=== PATIENT | male | born 1980 | race Two or more races ===

== ENCOUNTER 2016-08-15 22:00 | Emergency (ER) | payer SELFPAY ==
[2016-08-15 22:08] VITALS: BP 144/93; BMI 23.0
[2016-08-15] MEDS ORDERED: TORADOL 30 MG VIAL IVP STA (22:22)
[2016-08-15] MEDS ORDERED: NS 1000 ML 1,000 ML IV ONE (22:22)
[2016-08-15] MEDS ORDERED: NS 1000 ML 1,000 ML ONE (22:27)
[2016-08-15] MEDS ORDERED: TORADOL 30 MG VIAL ONE (22:27)
--- NOTE | 2016-08-15 22:27 | DR.GENAD ---
HPI - PCP Primary Care Physician: NFD - Complaint/Symptoms Chief Complaint Doctors Comments: Patient complains of severe right CVA pain and lower back pain for the past two hours onset at work. Patient states he feels he need to urinate but has not been able to urinate. He denies nausea, vomiting, fever, chills, rafa or hematuria. States he had similar pains about 5-6 years ago. He denies alcohol, drug or tobacco use. States he does not have a local doctor. He denies any recent trauma. Chief Complaint:: "He was working and his stomach started hurting all the way to his back. He is in excrutiating pain." - Nurses notes reviewed Nurses Notes Review: Yes - Source History Provided: Patient, Friend (intrepreter), Other - Mode of Arrival Mode of Arrival: Ambulatory - Timing Onset of Chief Complaint: 08/15/16 Came on: Suddenly - Duration Duration: Constant How lon Duration: Hours - Location Location: right CVA and lower back pain - Severity Severity: Severe - Modifying Factors Worsens:: movement Improves:: nothing PMH - PMH Past Medical History: No Past Surgical History: No - Family History History of Family Medical Conditions: Yes Family Medical History: Diabetes Mellitus - Social History Does patient currently use any type of tobacco product: No Have you used tobacco products in the last 12 months: No Type of Tobacco Use: None Does any household member use tobacco: No Alcohol Use: None Do you use any recreational Drugs:: No Lives With: Alone Lives Where: Home - infectious screening In the last 2 months have you had wt loss of >10#?: NO Have you had fever, night sweats or hemotysis?: No Have you traveled outside the country in the last 6 months?: Yes Details about travelin month ago Isolation: Standard ROS - Review of Systems Constitutional: No Symptoms Reported. negative: See HPI, Chills, Diaphoresis, Fever, Malaise, Weakness, Irritable, Fatigue, Loss of Appetite, Other Eyes: No Symptoms Reported. negative: See HPI, Eye Pain, Blurred Vision, Tearing, Discharge, Photophobia, Diplopia, Other ENTM: No Symptoms Reported. negative: See HPI, Ear Pain, Ear Discharge, Pulling on Ears, Hearing Loss, Nose Pain, Nose Discharge, Epistaxis, Nose Congestion, Mouth Pain, Mouth Swelling, Loose Teeth, Drooling, Throat Pain, Throat Swelling, Ear Foreign Body Respiratoy: No Symptoms Reported Cardiovascular: No Symptoms Reported. negative: See HPI, Chest Pain, Edema, Palpitations, Syncope, Cyanosis, Skin Mottling, Other Gastrointestinal/Abdominal: No Symptoms Reported, Abdominal Pain (right CVA pain ) Genitourinary: No Symptoms Reported, Dysuria, Pain. negative: See HPI, Discharge, Frequency, Hematuria, Bleeding, Other Neurological: No Symptoms Reported Musculoskeletal: No Symptoms Reported, Right, Back Integumentary: No Symptoms Reported Hematologic/Lymphatic: No Symptoms Reported Endocrine: No Symptoms Reported Psychiatric: No Symptoms Reported PE - Vital Signs Vitals: Temperature 98.2 F Pulse Rate 106 Respiratory Rate 18 Blood Pressure 144/93 O2 Sat by Pulse Oximetry 100 - General Limitations: No Limitations General Appearance: Alert, In Distress (moderate distress) - Head Head Exam: Normal Inspection, Atraumatic, Normocephalic - Eyes Eye exam: Normal Appearance, PERRL, EOMI. negative: Scleral Icterus, Conjunctival Injection, Nystagmus, Miosis, Mydrasis, Periorbital Swelling, Periorbital Tenderness, Other - ENT ENT Exam: Normal Exam, Normal Oropharynx, Normal External Ear Exam, Mucous Membranes Moist, TM's Normal Bilaterally External Ear Exam: Normal External Inspection TM/Canal Exam: Bilateral Normal Nose Exam: Normal Nose Exam Mouth Exam: Normal Inspection Throat Exam: Normal Inspection - Neck Neck Exam: Normal Inspection, Full ROM, Trachea Midline. negative: Tenderness, Meningismus, Lymphadenopathy, Thyromegaly, Other - Chest Chest Inspection: Normal Inspection, Symmetric Chest Wall Rise. negative: Tenderness, Rash, Abscess, Other - Respiratory Respiratory Exam: Normal Lung Sounds Bilat Respiratory Exam: Bilateral Clear to Auscultation - Cardiovascular Cardiovascular Exam: Regular Rate, Normal Rhythm, Normal Heart Sounds - Abdominal Exam Abdominal Exam: Normal Inspection, Normal Bowel Sounds, Soft Abdominal Tenderness: RUQ, RLQ, Severe - Extremities Extremities Exam: Normal Inspection, Full ROM, Normal Capillary Refill. negative: Tenderness, Edema, Joint Swelling, Calf Tenderness, Other - Back Back Exam: Normal Inspection, Full ROM, Tenderness (right CVA and right hypogastric tenderness), (R) CVA Tenderness. negative: (L) CVA Tenderness, Muscle Spasm, Paraspinal Tenderness, Vertebral Tenderness, Rashes, (R) Sciatic Notch Tenderness, (L) Sciatic Notch Tendern, (R) Straight Leg Raise, (L) Straight Leg Raise, Other - Neurologic Neurological Exam: Alert, Oriented X3, CN II-XII Intact, Normal Gait, Reflexes Normal - Psychiatric Psychiatric Exam: Normal Affect, Normal Mood - Skin Skin Exam: Warm, Dry, Intact, Normal Color ROR - Labs Reviewed Laboratory Results Reviewed?: Yes (All labs and x-ray results reviewed and discussed with patient) Result Diagrams: 08/15/16 22:31 08/15/16 22:31 Laboratory: WBC 15.7 X10^3/uL (3.6-10.0) H 08/15/16 22:31 RBC 5.63 X10^6/uL (4.7-6.0) 08/15/16 22: Hgb 16.9 g/dL (13.5-18.0) 08/15/16 22:31 Hct 49.4 % (42.0-54.0) 08/15/16 22: MCV 87.7 fL (80.0-100.0) 08/15/16 22:31 MCH 30.0 pg (27.0-34.0) 08/15/16 22: MCHC 34.3 g/dL (33.0-35.0) 08/15/16 22: RDW 13.5 % (11.6-16.5) 08/15/16 22:31 Plt Count 293 X10^3/uL (150.0-450.0) 08/15/16 22:31 MPV 7.9 fL (7.4-11.0) 08/15/16 22:31 Neut % 81.1 % (42.0-75.0) H 08/15/16 22:31 Lymph % 13.9 % (21.0-51.0) L 08/15/16 22: Lamar % 3.7 % (0.0-13.0) 08/15/16 22:31 Eos % 0.9 % (0.9-2.9) 08/15/16 22:31 Baso % 0.4 % (0.2-1.0) 08/15/16 22:31 Neut # 12.7 x10^3/uL (2.2-4.8) H 08/15/16 22:31 Lymph # 2.2 X10^3/uL (1.3-2.9) 08/15/16 22:31 Lamar # 0.6 x10^3/uL (0.3-0.8) 08/15/16 22:31 Eos # 0.1 x10^3/uL (0.0-0.2) 08/15/16 22:31 Baso # 0.1 X10^3/uL (0.0-0.1) 08/15/16 22:31 Absolute Nucleated RBC 0.2 /100WBC 08/15/16 22:31 Sodium 146 mmol/L (136-145) H 08/15/16 22:31 Corrected Sodium 147 mmol/L (136-145) H 08/15/16 22:31 Potassium 3.5 mmol/L (3.5-5.1) 08/15/16 22:31 Chloride 107 mmol/L (98-107) 08/15/16 22:31 Carbon Dioxide 27.0 mmol/L (21-32) 08/15/16 22:31 BUN 12 mg/dL (7-18) 08/15/16 22:31 Creatinine 1.24 mg/dL (0.70-1.30) 08/15/16 22:31 Est GFR (MDRD) Af Amer > 60 (>60) 08/15/16 22:31 Est GFR (MDRD) Non-Af > 60 (>60) 08/15/16 22:31 Glucose 158 mg/dL (65-99) H 08/15/16 22:31 Calcium 9.7 mg/dL (8.5-10.1) 08/15/16 22:31 Corrected Calcium TNP 08/15/16 22:31 Total Bilirubin 0.40 mg/dL (0.2-1.0) 08/15/16 22:31 AST 22 Units/L (15-37) 08/15/16 22:31 ALT 38 Units/L (12-78) 08/15/16 22:31 Alkaline Phosphatase 124 Units/L (46-116) H 08/15/16 22:31 Total Protein 8.0 g/dL (6.4-8.2) 08/15/16 22:31 Albumin 4.2 g/dL (3.4-5.0) 08/15/16 22:31 Globulin 3.8 g/dL (2.5-4.5) 08/15/16 22:31 Albumin/Globulin Ratio 1.1 Ratio (1.1-2.1) 08/15/16 22:31 Amylase 115 Units/L (25-115) 08/15/16 22:31 Lipase 359 Units/L (73-393) 08/15/16 22:31 Specimen Type Clean catch urine 08/15/16 23:29 Urine Color Dark yellow (YELLOW) 08/15/16 23:29 Urine Appearance Cloudy (CLEAR) 08/15/16 23:29 Urine pH 6.5 (5.0 - 8.0) 08/15/16 23:29 Ur Specific [place] 1.020 (1.000-1.030) 08/15/16 23:29 Urine Protein 2+ (NEGATIVE) 08/15/16 23:29 Urine Glucose (UA) Negative (NEGATIVE) 08/15/16 23:29 Urine Ketones Negative (NEGATIVE) 08/15/16 23:29 Urine Occult Blood 5+ (NEGATIVE) 08/15/16 23:29 Urine Nitrite Negative (NEGATIVE) 08/15/16 23:29 Urine Bilirubin Negative (NEGATIVE) 08/15/16 23:29 Urine Urobilinogen Normal (NORMAL) 08/15/16 23:29 Ur Leukocyte Esterase 1+ (NEGATIVE) 08/15/16 23:29 Urine RBC Tntc /HPF (NEGATIVE) 08/15/16 23:29 Urine WBC 10-15 /HPF (NEGATIVE) 08/15/16 23:29 Ur Squamous Epith Cells Rare /HPF (NEGATIVE) 08/15/16 23:29 Urine Bacteria 1+ /HPF (NEGATIVE) 08/15/16 23:29 Ur Culture Indicated? Yes/culture set up 08/15/16 23:29 - XRAY XRAY Interpreted by: Radiologist (CT abdomend: 3mm stone in the distal right ureter causing mild right hydronephrosis and hydroureter) - Diagnosis Discharge Problem: Right distal ureteral calculus, Hyperglycemia Urinary tract infection Qualifiers: Urinary tract infection type: acute cystitis - Discharge Plan Disposition: 01 HOME, SELF-CARE Condition: Stable Prescriptions: Ciprofloxacin HCl [CIPRO 500 MG TAB *] 500 mg PO Q12H #20 tab Ketorolac Tromethamine [TORADOL TAB 10 MG *] 10 mg PO Q8H PRN #12 tab PRN Reason: Pain Tamsulosin HCl [FLOMAX (GENERIC) 0.4 MG *] 0.4 mg PO DAILY #10 cap - Follow ups/Referrals Follow ups/Referrals: NFD,None [Primary Care Provider] - 3 days MARIANA HIGGINS [CONSULTING PHYSICIAN] - 3 days - Instructions Instructions: Kidney Stones, [id number], Hyperglycemia, Urinary Tract Infection
[2016-08-15 22:47] LABS: ALANINE AMINOTRANSFERASE 38 Units/L (12-78); ALBUMIN 4.2 g/dL (3.4-5.0); ALKALINE PHOSPHATASE 124 Units/L (46-116); AMYLASE 115 Units/L (25-115); ASPARTATE AMINO TRANSFERASE 22 Units/L (15-37); BLOOD UREA NITROGEN 12 mg/dL (7-18); CALCIUM 9.7 mg/dL (8.5-10.1); CHLORIDE 107 mmol/L (98-107); COR NA(FOR HYPERGLY) 147 mmol/L (136-145); CREATININE 1.24 mg/dL (0.70-1.30); GLUCOSE 158 mg/dL (65-99); LIPASE 359 Units/L (73-393); SODIUM 146 mmol/L (136-145); eGFR BLACK RACES > 60 (>60); eGFR NON BLACK RACES > 60 (>60)
[2016-08-15 22:50] LABS: BASOPHILS # (AUTO) 0.1 X10^3/uL (0.0-0.1); BASOPHILS % (AUTO) 0.4 % (0.2-1.0); EOSINOPHILS # (AUTO) 0.1 x10^3/uL (0.0-0.2); EOSINOPHILS % (AUTO) 0.9 % (0.9-2.9); HEMATOCRIT 49.4 % (42.0-54.0); HEMOGLOBIN 16.9 g/dL (13.5-18.0); LYMPHOCYTES # (AUTO) 2.2 X10^3/uL (1.3-2.9); LYMPHOCYTES % (AUTO) 13.9 % (21.0-51.0); MEAN CORPUSCULAR HGB CONC 34.3 g/dL (33.0-35.0); MEAN CORPUSCULAR VOLUME 87.7 fL (80.0-100.0); MEAN PLATELET VOLUME 7.9 fL (7.4-11.0); MONOCYTES # (AUTO) 0.6 x10^3/uL (0.3-0.8); MONOCYTES % (AUTO) 3.7 % (0.0-13.0); NEUTROPHILS # (AUTO) 12.7 x10^3/uL (2.2-4.8); NEUTROPHILS % (AUTO) 81.1 % (42.0-75.0); PLATELET COUNT 293 X10^3/uL (150.0-450.0); RED BLOOD COUNT 5.63 X10^6/uL (4.7-6.0); RED CELL DISTRIBUTION WIDTH 13.5 % (11.6-16.5); WHITE BLOOD COUNT 15.7 X10^3/uL (3.6-10.0)
--- NOTE | 2016-08-15 23:10 | CT ---
EXAM: CT ABDOMEN AND PELVIS WITHOUT CONTRAST INDICATION: Right flank pain COMPARISION: No priors available for comparison TECHNIQUE: Axial CT examination of the abdomen and pelvis was performed without intravenous contrast. Coronal a nd sagittal reconstructions were created using the axial data. FINDINGS: The lung bases are clear. The liver, spleen, pancreas, adrenal glands, left kidney, and gallbladder are normal. There is a 3 mm stone in the distal right ureter above the UVJ causing mild right hydron ephrosis and hydroureter. There is no evidence of biliary ductal dilatation. The aorta and inferior vena cava are normal in caliber. The bowel loops are nonobstructed. No abnormal mass, lymphadenopathy, or fluid collection. Urinary bladder is normal. The regional skeleton is intact. IMPRESSION: There is a 3 mm stone in the distal right ureter causing mild right hydronephrosis and hydroureter. Reported By:
[2016-08-16 00:01] LABS: BILIRUBIN,URINE NEGATIVE (NEGATIVE); BLOOD/HEMOGLOBIN,URINE 5+ (NEGATIVE); GLUCOSE, URINE NEGATIVE (NEGATIVE); KETONES,URINE NEGATIVE (NEGATIVE); LEUKOCYTE ESTERASE ,URINE 1+ (NEGATIVE); NITRITES,URINE NEGATIVE (NEGATIVE); PH,URINE 6.5 (5.0 - 8.0); PROTEIN,URINE 2+ (NEGATIVE); UROBILINOGEN,URINE NORMAL (NORMAL)
[2016-08-16 00:27] LABS: APPEARANCE,URINE CLOUDY (CLEAR); BACTERIA,URINE 1+ /HPF (NEGATIVE); COLOR,URINE DARK YELLOW (YELLOW); RBC,URINE TNTC /HPF (NEGATIVE); SQUAMOUS EPITHELIAL CELL,UR RARE /HPF (NEGATIVE)
[2016-08-16] MEDS ORDERED: LEVAQUIN TAB 500 MG PO SCH (01:00)
== END 2016-08-16 01:07 | disposition home or self-care (01) ==
LOC: ER 22:15
DX: N20.1 Calculus of ureter (principal); R73.9 Hyperglycemia, unspecified
CPT/HCPCS: 36415; 74176; 80053; 81001; 82150; 83690; 85025; 87086; 96365; 96374; 99283; A4216; A4222; J1885